=== PATIENT | female | born 1985 | race Caucasian/White ===

== ENCOUNTER 2019-02-02 03:03 | Emergency (ER) | payer BC ==
[~2019-02-02] VITALS: Ht 165.1 cm; Wt 86.2 kg
[2019-02-02 03:12] VITALS: Ht 165.1 cm; Wt 86.2 kg
[2019-02-02 05:54] VITALS: BP 110/67
== END 2019-02-02 05:54 | disposition home or self-care (01) ==
LOC: ED 03:03
DX: S06.899A Other specified intracranial injury with loss of consciousness of unspecified duration, initial encounter (principal); X58.XXXA Exposure to other specified factors, initial encounter; Y93.89 Activity, other specified; Y92.89 Other specified places as the place of occurrence of the external cause; Y99.8 Other external cause status
CPT/HCPCS: J7030